=== PATIENT | female | born 1990 | race Caucasian/White ===

== ENCOUNTER 2017-05-04 08:30 | Outpatient (CLI) | payer MEDICAID, OTHER | END 2017-05-04 08:31 | disposition home or self-care (01) | LOC: LAB.N 08:30 | PROVIDERS: ATTEND Physician Assistant | DX: Z11.3 Encounter for screening for infections with a predominantly sexual mode of transmission (principal) | CPT/HCPCS: 36415; 86695; 86696; 87491; 87591 ==